=== PATIENT | male | born 1955 | race Caucasian/White ===

== ENCOUNTER 2018-10-31 02:58 | Inpatient (IN) | payer BC ==
[2018-10-31] MEDS ORDERED: NITROGLYCERIN/D5W 50 MG/250 ML RTUINJ IV PRN (03:15)
[2018-10-31] MEDS ORDERED: NITROGLYCERIN/D5W 50 MG/250 ML RTUINJ IV ONE (03:15)
--- NOTE | 2018-10-31 03:18 | ER Document Report ---
ED Respiratory Problem - General Chief Complaint: Shortness Of Breath Stated Complaint: SHORTNESS OF BREATH Time Seen by Provider: 10/31/18 03:07 Notes: Patient is a 63-year-old male that comes to the emergency department for chief complaint of difficulty breathing. He comes by EMS, he was found to be very hypertensive in the 200s over 100s, he was given 4 sublingual nitroglycerin and had to 1 inch Nitropaste was placed on his chest. Patient states he is not having chest pain but he did significantly get worsening shortness of breath and swelling on his legs over the past 3 days. He states he has had a cough with occasional greenish sputum production. He denies fever. He did have the influenza vaccine. He denies history of heart failure. He does have a history of hypertension, atrial fibrillation, on Eliquis. Denies history of MO, stent, bypass, CHF. Follows with [facility] providers. - Related Data Allergies/Adverse Reactions: Penicillins Allergy (Verified 10/31/18 03:47) Past Medical History - General Information source: Patient - Social History Smoking Status: Never Smoker Frequency of alcohol use: None Drug Abuse: None Lives with: Family Family History: Reviewed & Not Pertinent - Past Medical History Cardiac Medical History: Reports: Hx Atrial Fibrillation, Hx Hypertension - Immunizations Immunizations up to date: Yes Hx Diphtheria, Pertussis, Tetanus Vaccination: Yes Review of Systems - Review of Systems Constitutional: No symptoms reported EENT: No symptoms reported Cardiovascular: See HPI Respiratory: See HPI Gastrointestinal: No symptoms reported Genitourinary: No symptoms reported Male Genitourinary: No symptoms reported Musculoskeletal: No symptoms reported Skin: No symptoms reported Hematologic/Lymphatic: No symptoms reported Neurological/Psychological: No symptoms reported Physical Exam - Vital signs Vitals: Temp Pulse Resp BP Pulse Ox 97.9 F 77 24 H 205/126 H 94 10/31/18 02:58 10/31/18 02:58 10/31/18 02:58 10/31/18 02:58 10/31/18 02:58 - Notes Notes: GENERAL: Alert, interacts well. HEAD: Normocephalic, atraumatic. EYES: Pupils equal, round, and reactive to light. Extraocular movements intact. ENT: Oral mucosa moist, tongue midline. Oropharynx unremarkable. Airway patent. Nares patent, no nasal septal hematoma, TM's intact. NECK: Full range of motion. Supple. Trachea midline. LUNGS: Bilateral soft rales, scattered coarse breath sounds, mild tachypnea. No labored breathing or severe distress while on BiPAP. HEART: Regular rate and rhythm. No murmur ABDOMEN: Soft, non-tender. Non-distended. Bowel sounds present in all 4 quadrants. GENITOURINARY: Deferred EXTREMITIES: Moves all 4 extremities spontaneously. 3+ lower extremity edema bilaterally., normal radial and dorsalis pedis pulses bilaterally. No cyanosis. BACK: no cervical, thoracic, lumbar midline tenderness. No saddle anesthesia, normal distal neurovascular exam. NEUROLOGICAL: Alert and oriented x3. Normal speech. [cranial nerves II through XII grossly intact]. PSYCH: Normal affect, normal mood. SKIN: Warm, dry, normal turgor. Healing wound with current dressing over the left distal anterior leg without notable surrounding erythema or induration. Course - Re-evaluation Re-evalutation: On initial evaluation patient with bilateral rails, a few expiratory wheezes, mild tachypnea. He was immediately placed on BiPAP. Blood pressures greater than 200 systolic. Bilateral lower extremity swelling. Clinical picture is most consistent with flash pulmonary edema, patient has already received 4 sublingual nitroglycerin and 2 inches of nitroglycerin on the chest. Patient was started on nitroglycerin drip at 80 mcg/min. He states he feels better but still short of breath. 10/31/18 04:00 Patient reevaluated, appears comfortable on BiPAP, he states he feels very much improved after arrival. He does not have any tachypnea or complaints of shortness of breath. Blood pressure in the 160s. I did remove the Nitropaste from his chest. Workup still pending. Chest x-ray does not show overt failure, possible pneumonia. This is consistent with patient being on BiPAP and having received a lot of nitroglycerin before the chest x-ray is performed. Patient does have leukocytosis at 14, lactic acid is only 2.6, troponin is indeterminate. Starting on Levaquin. Because of clinical picture patient with hypertensive emergency, respiratory distress, and excellent response to nitroglycerin with symptom resolution, in addition to lowe r extremity edema, patient will remain on nitroglycerin drip, be given Lasix bolus IV, and remain on BiPAP. Will discuss with hospitalist for admission. I discussed the case with Dr. Hackett. 10/31/18 04:[address] Cummings, hospitalist, patient accepted to [facility] full admission. - Vital Signs Vital signs: Temp Pulse Resp BP Pulse Ox 97.3 F 79 16 177/82 H 97 10/31/18 06:40 10/31/18 07:07 10/31/18 06:40 10/31/18 07:07 10/31/18 06:42 - Laboratory Result Diagrams: 10/31/18 03:11 10/31/18 03:11 Laboratory results interpreted by me: 10/31/18 10/31/18 10/31/18 03:11 03:11 03:11 WBC 13.9 H Absolute Neutrophils 9.8 H Lactic Acid NT-Pro-B Natriuret Pep 2060 H Total Protein 6.0 L Albumin 3.2 L TSH 10/31/18 10/31/18 10/31/18 03:11 03:11 03:11 WBC Absolute Neutrophils Lactic Acid 2.6 H NT-Pro-B Natriuret Pep 2180 H Total Protein Albumin TSH 5.88 H Critical Care Note - Critical Care Note Total time excluding time spent on procedures (mins): 40 - Respiratory distress, acute CHF Comments: Please allow 40 minutes of critical care time for patient with respiratory distress, hypertensive emergency, acute CHF exacerbation, likely pneumonia. Interventions including BiPAP, antibiotics, nitroglycerin drip, multiple re- evaluations, consultation and admission to the hospital. Discharge - Discharge Clinical Impression: Respiratory distress, Productive cough, Hypertensive emergency CHF (congestive heart failure) Qualifiers: Heart failure type: unspecified Heart failure chronicity: acute Qualified Code(s): I50.9 - Heart failure, unspecified Condition: Fair Disposition: ADMITTED INPATIENT Admitting Provider: Hospitalist Unit Admitted: [facility]
[2018-10-31 03:27] LABS: ABSOLUTE BASOPHILS # (AUTO) 0.1 10^3/uL (0.0-0.2); ABSOLUTE EOSINOPHILS # (AUTO) 0.4 10^3/uL (0.0-0.6); ABSOLUTE LYMPHOCYTES (AUTO) 2.4 10^3/uL (0.5-4.7); ABSOLUTE MONOCYTES (AUTO) 1.2 10^3/uL (0.1-1.4); ABSOLUTE NEUT (AUTO) 9.8 10^3/uL (1.7-8.2); HEMATOCRIT 43.5 % (37.9-51.0); LYMPHOCYTES % (AUTO) 17.1 % (13-45); MEAN CORPUSCULAR HEMOGLOBIN 27.9 pg (27.0-33.4); MEAN CORPUSCULAR HGB CONC 34.5 g/dL (32.0-36.0); MEAN CORPUSCULAR VOLUME 81 fl (80-97); MONOCYTES % (AUTO) 8.4 % (3-13); PLATELET COUNT 257 10^3/uL (150-450); RED BLOOD COUNT 5.38 10^6/uL (4.35-5.55); SEGMENTED NEUTROPHILS % (AUTO) 70.5 % (42-78); TOTAL CELLS COUNTED % (AUTO) 100 %; WHITE BLOOD COUNT 13.9 10^3/uL (4.0-10.5)
[2018-10-31 03:30] LABS: VENOUS BLOOD BASE EXCESS 2.8 mmol/L; VENOUS BLOOD PCO2 55.7 mmHg (35-63); VENOUS BLOOD PH 7.35 (7.30-7.42)
[2018-10-31 03:50] LABS: ALANINE AMINOTRANSFERASE 43 U/L (21-72); ALBUMIN 3.2 g/dL (3.5-5.0); ALKALINE PHOSPHATASE 93 U/L (38-126); ANION GAP 6 (5-19); ASPARTATE AMINO TRANSFERASE 32 U/L (17-59); BILIRUBIN,DIRECT 0.1 mg/dL (0.0-0.4); BILIRUBIN,TOTAL 0.5 mg/dL (0.2-1.3); BLOOD UREA NITROGEN 19 mg/dL (7-20); CALCIUM 9.3 mg/dL (8.4-10.2); CARBON DIOXIDE 30 mmol/L (22-30); CHLORIDE 105 mmol/L (98-107); GLUCOSE 88 mg/dL (75-110); SODIUM 141.4 mmol/L (137-145)
--- NOTE | 2018-10-31 04:00 | RADIOLOGY REPORT (SQ) ---
CLINICAL HISTORY: shortness of breath COMPARISON: None. TECHNIQUE: XR CHEST 1 VIEW 10/31/2018 3:11 AM RN ADMISSIONS FINDINGS: The heart is mildly enlarged. There is bibasilar atelectasis. There is no pleural effusion. There is no pneumothorax. There are no acute osseous findings. IMPRESSION: No definite pneumonia.
[2018-10-31 04:07] LABS: TROPONIN I 0.026 ng/mL
[2018-10-31] MEDS ORDERED: FUROSEMIDE INJ/PF 40 MG/4 ML SDV IV ONE ×2 (04:12→04:50)
[2018-10-31] MEDS ORDERED: LEVOFLOXACIN 750 MG/D5W RTU 750 MG/150 ML RTUPB IV ONE (04:13)
[2018-10-31] MEDS ORDERED: ONDANSETRON HCL INJ/PF 4 MG/2 ML SDV IV PRN (05:39)
[2018-10-31] MEDS ORDERED: ONDANSETRON 4 MG TAB.RAPDIS PO PRN (05:39)
[2018-10-31] MEDS ORDERED: MAG HYDROX/AL HYDROX/SIMETH SUSP 30 ML UDCUP PO PRN (05:39)
[2018-10-31] MEDS ORDERED: MAGNESIUM HYDROXIDE SUSP 30 ML UDCUP PO PRN (05:39)
[2018-10-31] MEDS ORDERED: NICOTINE 21 MG/24 HR PATCH.TD24 TD PRN (05:50)
[2018-10-31] MEDS ORDERED: NITROGLYCERIN 0.4 MG/TAB 25 TAB/BOTTLE SL PRN (05:50)
[2018-10-31] MEDS ORDERED: ACETAMINOPHEN 650 MG SUPP.RECT PR PRN (05:50)
[2018-10-31] MEDS ORDERED: MORPHINE SULFATE 10 MG/ML INJ IV PRN ×3 (05:50)
[2018-10-31] MEDS ORDERED: ACETAMINOPHEN 325 MG TABLET PO PRN (05:50)
[2018-10-31 06:58] LABS: FREE T3 3.09 pg/mL (2.77-5.27); FREE T4 (FREE THYROXINE) 1.2 ng/dL (0.78-2.19)
[2018-10-31 07:11] LABS: THYROID STIMULATING HORMONE 5.88 uIU/mL (0.47-4.68)
--- NOTE | 2018-10-31 07:25 | PDOC H&P ---
History of Present Illness Admission Date/PCP: 10/31/18 05:12 UNIQUE LAROSE DO Patient complains of: Dyspnea History of Present Illness: MARILEE MONTANO is a 63 year old male who presented to the emergency room with a 3- day history of gradually worsening dyspnea. Over the course of 3 days he noted increased dyspnea with swelling of his legs and a cough which was occasionally productive of small amounts of green mucus. On the late evening of Berta he became severely dyspneic at home and summoned EMS to bring him to the hospital. He denied similar prior episodes and has not identified any aggravating or ameliorating factors for his dyspnea and swelling. In the emergency room he was found to have severe hypertension as well as acute pulmonary edema with 4+ peripheral edema and thus was treated with a nitroglycerin drip and supplemental oxygen via BiPAP which relieved his symptoms. He was also treated with diuretic therapy utilizing Lasix and was started on empiric antibiotic of Levaquin due to an elevated white blood count with his history of a cough productive of greenish mucus and mildly elevated serum lactate at 2.6. He additionally has a history of atrial fibrillation and is on chronic anticoagulation with Eliquis. Because of his new onset congestive heart failure he is admitted to the hospital for further evaluation and felipe tment. Past Medical History Cardiac Medical History: Reports: Atrial Fibrillation - On chronic anticoagulation with Eliquis, Hypertension, Other - Edema of the lower extremities Pulmonary Medical History: Denies: Asthma, Chronic Obstructive Pulmonary Disease (COPD) EENT Medical History: Reports: None Neurological Medical History: Denies: Hemorrhagic CVA, Ischemic CVA, Migraine, Seizures Endocrine Medical History: Reports: Obesity Denies: Diabetes Mellitus Type 1, Diabetes Mellitus Type 2, Hyperthyroidism, Hypothyroidism Renal/ Medical History: Denies: Chronic Kidney Disease, Nephrolithiasis Malignancy Medical History: Reports: None GI Medical History: Denies: Cirrhosis, Hepatitis Musculoskeltal Medical History: Denies: Arthritis, Gout Skin Medical History: Denies: Eczema, Psoriasis Psychiatric Medical History: Denies: Alcohol Dependency, Substance Abuse, Tobacco Dependency Traumatic Medical History: Reports: None Hematology: Reports: Bleeding Tendencies - On Eliquis Denies: Anemia Infectious Medical History: Reports: None Past Surgical History Past Surgical History: Reports: None Social History Information Source: Patient Lives with: Spouse/Significant other Smoking Status: Never Smoker Frequency of Alcohol Use: None Hx Recreational Drug Use: No Drugs: None Hx Prescription Drug Abuse: No - Advance Directive Resuscitation Status: Full Code Surrogate healthcare decision maker:: Family History Family History: Hypertension Parental Family History Reviewed: Yes Children Family History Reviewed: No Sibling(s) Family History Reviewed.: Yes Medication/Allergy Home Medications: Amlodipine Besylate [Norvasc 10 mg Tablet] 05/05/12 Aspirin [Ecotrin 81 mg EC Tablet] 05/05/12 Fenofibrate [Lofibra] 05/05/12 Ibuprofen [Motrin Ib] 05/05/12 Insulin Glargine,Hum.rec.anlog [Lantus Solostar] 100 unit SQ 05/05/12 Metformin HCl [Glumetza ER 500 mg Tablet] 05/05/12 Metoprolol Tartrate [Lopressor 50 mg Tablet] 50 mg PO Q12H 05/05/12 Allergies/Adverse Reactions: Penicillins Allergy (Verified 10/31/18 03:47) Review of Systems Constitutional: ABSENT: chills, fever(s) Eyes: ABSENT: visual disturbances, other - Ocular pain Ears: ABSENT: hearing changes, other - Ear pain Nose, Mouth, and Throat: ABSENT: mouth pain, sore throat Cardiovascular: PRESENT: dyspnea on exertion, edema, orthropnea. ABSENT: chest pain, palpitations Respiratory: PRESENT: cough, dyspnea, sputum - Greenish thick sputum Gastrointestinal: ABSENT: abdominal pain, constipation, diarrhea, nausea, vomiting Genitourinary: ABSENT: dysuria, hematuria Musculoskeletal: ABSENT: deformity, joint swelling Integumentary: ABSENT: pruritus, rash Neurological: ABSENT: confusion, convulsions, memory loss, tremor(s) Psychiatric: ABSENT: anxiety, depression Endocrine: ABSENT: cold intolerance, heat intolerance Hematologic/Lymphatic: PRESENT: easy bleeding, easy bruising Physical Exam Vital Signs: Temp Pulse Resp BP Pulse Ox 97.9 F 77 12 144/90 H 96 10/31/18 02:58 10/31/18 02:58 10/31/18 05:56 10/31/18 05:56 10/31/18 05:56 Intake & Output 10/29/18 10/30/18 10/31/18 23:59 23:59 23:59 Intake Total 17 Balance 17 Weight 146.9 kg General appearance: PRESENT: no acute distress, cooperative, other - On BiPAP Head exam: PRESENT: atraumatic, normocephalic Eye exam: PRESENT: conjunctiva pink. ABSENT: scleral icterus Ear exam: PRESENT: normal external ear exam. ABSENT: bleeding, drainage Mouth exam: PRESENT: dry mucosa, neck supple Respiratory exam: PRESENT: rales - Bibasilar, symmetrical. ABSENT: prolonged expiratory phas, rhonchi, wheezes Cardiovascular exam: PRESENT: gallop - S4 gallop noted, irregular rhythm - Irregularly irregular rate and rhythm. ABSENT: clicks, rubs Pulses: PRESENT: normal radial pulses, normal dorsalis pedis pul Vascular exam: PRESENT: normal capillary refill. ABSENT: pallor GI/Abdominal exam: PRESENT: normal bowel sounds, soft Rectal exam: PRESENT: deferred Extremities exam: PRESENT: other - 4+ pitting edema bilateral toes to knees. ABSENT: tenderness Musculoskeletal exam: ABSENT: deformity, dislocation Neurological exam: PRESENT: alert, oriented to person, oriented to place, oriented to time, oriented to situation, CN II-XII grossly intact. ABSENT: motor sensory deficit Psychiatric exam: PRESENT: appropriate affect, normal mood Skin exam: PRESENT: dry, intact, warm. ABSENT: jaundice, rash, urticaria Results Laboratory Results: 10/31/18 03:11 10/31/18 03:11 10/31/18 10/31/18 10/31/18 03:11 03:11 03:11 WBC 13.9 H RBC 5.38 Hgb 15.0 Hct 43.5 MCV 81 MCH 27.9 MCHC 34.5 RDW 14.0 Plt Count 257 Seg Neutrophils % 70.5 Lymphocytes % 17.1 Monocytes % 8.4 Eosinophils % 3.0 Basophils % 1.0 Absolute Neutrophils 9.8 H Absolute Lymphocytes 2.4 Absolute Monocytes 1.2 Absolute Eosinophils 0.4 Absolute Basophils 0.1 VBG pH VBG pCO2 VBG HCO3 VBG Base Excess Sodium 141.4 Potassium 4.0 Chloride 105 Carbon Dioxide 30 Anion Gap 6 BUN 19 Creatinine 1.03 Est GFR ( Amer) > 60 Est GFR (Non-Af Amer) > 60 Glucose 88 Lactic Acid 2.6 H Calcium 9.3 Total Bilirubin 0.5 AST 32 ALT 43 Alkaline Phosphatase 93 Total Protein 6.0 L Albumin 3.2 L 10/31/18 03:11 WBC RBC Hgb Hct MCV MCH MCHC RDW Plt Count Seg Neutrophils % Lymphocytes % Monocytes % Eosinophils % Basophils % Absolute Neutrophils Absolute Lymphocytes Absolute Monocytes Absolute Eosinophils Absolute Basophils VBG pH 7.35 VBG pCO2 55.7 VBG HCO3 30.0 VBG Base Excess 2.8 Sodium Potassium Chloride Carbon Dioxide Anion Gap BUN Creatinine Est GFR ( Amer) Est GFR (Non-Af Amer) Glucose Lactic Acid Calcium Total Bilirubin AST ALT Alkaline Phosphatase Total Protein Albumin 10/31/18 03:11 Troponin I 0.026 NT-Pro-B Natriuret Pep 2060 H Impressions: Chest X-Ray 10/31/18 03:11 IMPRESSION: No definite pneumonia. Assessment & Plan - Diagnosis (1) Acute congestive heart failure Qualifiers: Heart failure type: unspecified Qualified Code(s): I50.9 - Heart failure, unspecified Is this a current diagnosis for this admission?: Yes Plan: I suspect that this is actually acute on chronic diastolic congestive heart failure however this will need to be proven by echocardiography. Patient was initially treated with BiPAP plus diuretics plus a nitroglycerin drip. He had a good response to initial therapy and will be started on usual therapeutic agents for heart failure including a beta-nikia Toprol-XL, and SOTERO inhibitor lisinopril, spironolactone, and a statin. An echocardiogram will be obtained. Serial EKGs and cardiac enzyme determinations will be made to rule out acute cardiac ischemia or injury. Patient will be continued on Nitropaste for the interim until he has been adequately started on his other therapeutic agents. (2) Hypertensive emergency Is this a current diagnosis for this admission?: Yes Plan: Patient was initially treated with nitroglycerin drip this was substituted for nitroglycerin paste changed to every 6 hours. Should he develop chest pain or acute dyspnea he will be treated with intravenous morphine sulfate 2-4 mg IV every 2 hours as needed pain per pain scale. Serial EKGs and cardiac enzymes will be obtained to evaluate potential myocardial ischemia or injury. Vital signs will be observed closely on the IMCU and the patient will be on cardiac telemetry. (3) Productive cough Is this a current diagnosis for this admission?: Yes Plan: Patient was started empirically on Levaquin in the emergency room. This will be continued for a total of 3000 mg to complete the usual short course therapy. Daily CBCs will be obtained to help evaluate therapy. Serum lactate will be rechecked 4 hours after the initial evaluation. (4) Chronic anticoagulation Is this a current diagnosis for this admission?: Yes Plan: Patient will be continued on his usual dose of Eliquis once medication confir mation has been performed and correct dosing can be determined. (5) Chronic atrial fibrillation Is this a current diagnosis for this admission?: Yes Plan: Patient will be continued on his current regimen of anticoagulation therapy. He will be treated for congestive heart failure and medications for congestive heart failure may be used to control his atrial fibrillation rate if needed. (6) Morbid obesity with BMI of 45.0-49.9, adult Is this a current diagnosis for this admission?: Yes Plan: Dietary consultation should be obtained to assist the patient in a appropriate weight loss diet and lifestyle modifications to allow him to maintain weight loss and improved health. - Time Time Spent: 30 to 50 Minutes Critical Time spent with patient: Less than 15 minutes Medications reviewed and adjusted accordingly: Yes Anticipated discharge: Home - Inpatient Certification Based on my medical assessment, after consideration of the patient's comorbidities, presenting symptoms, or acuity I expect that the services needed warrant INPATIENT care.: Yes I certify that my determination is in accordance with my understanding of Medicare's requirements for reasonable and necessary INPATIENT services [42 CFR 412.3e].: Yes Medical Necessity: Need Close Monitoring Due to Risk of Patient Decompensation, Need For Continuous Telemetry Monitoring, Risk of Complication if Not Cared For in Hospital
[2018-10-31] MEDS ORDERED: DEXTROSE 50%-WATER 25 GM/50 ML DISP.SYRIN IV PRN ×2 (07:42)
[2018-10-31] MEDS ORDERED: DEXTROSE 40% GEL 15 GM TUBE PO PRN ×2 (07:42)
[2018-10-31] MEDS ORDERED: GLUCAGON,HUMAN RECOMB 1 MG INJ IM PRN (07:42)
[2018-10-31] MEDS ORDERED: METFORMIN HCL 500 MG PO SCH (08:00)
[2018-10-31] MEDS ORDERED: FONDAPARINUX SODIUM INJ 2.5 MG/0.5 ML DISP.SYRIN SUBCUT SCH (08:00)
[2018-10-31 08:20] LABS: APPEARANCE,URINE CLEAR; BILIRUBIN,URINE NEGATIVE (NEGATIVE); COLOR,URINE YELLOW; GLUCOSE, URINE NEGATIVE (NEGATIVE); KETONES,URINE NEGATIVE (NEGATIVE); LEUKOCYTE ESTERASE,URINE NEGATIVE (NEGATIVE); NITRITE,URINE NEGATIVE (NEGATIVE); PROTEIN,URINE >=500 mg/dL (NEGATIVE); UROBILINOGEN,URINE NEGATIVE mg/dL (<2.0)
[2018-10-31 08:26] LABS: A TYPE INFLUENZA AG NEGATIVE (NEGATIVE); B INFLUENZA AG NEGATIVE (NEGATIVE)
[2018-10-31] MEDS: NITROGLYCERIN 2% OINTMENT 1 GM PACKET TP SCH ×4 (08:34→23:53)
[2018-10-31] MEDS: ASPIRIN 81 MG TABLET, ENT COATED PO SCH (09:23)
[2018-10-31] MEDS: APIXABAN 5 MG TABLET PO SCH ×2 (09:23→17:31)
[2018-10-31] MEDS: TORSEMIDE 20 MG TABLET PO SCH (09:23)
[2018-10-31] MEDS: SPIRONOLACTONE 25 MG TABLET PO SCH (09:24)
[2018-10-31] MEDS: DOCUSATE SODIUM 100 MG CAPSULE PO SCH ×2 (09:24→17:31)
[2018-10-31] MEDS: LISINOPRIL 10 MG TABLET PO SCH (09:24)
[2018-10-31] MEDS: METFORMIN HCL 500 MG TABLET PO SCH ×2 (09:24→17:31)
[2018-10-31] MEDS: INSULIN GLARGINE,HUM.REC.ANLOG 300 UNIT/3 ML INSULN.PEN SUBCUT SCH (09:25)
[2018-10-31] MEDS: FAMOTIDINE INJ/PF 20 MG/2 ML SDV IV SCH ×2 (09:25→21:28)
[2018-10-31] MEDS ORDERED: METOPROLOL SUCCINATE 50 MG TAB.SR.24H PO SCH ×2 (10:00)
[2018-10-31 10:29] LABS: CREATINE KINASE MB 2.83 ng/mL (<4.55); TROPONIN I 0.03 ng/mL
[2018-10-31] MEDS: INSULIN LISPRO 100 UNIT/ML 3 ML VIAL SUBCUT PRN ×2 (11:47→16:20)
--- NOTE | 2018-10-31 14:20 | EKG REPORT ---
SEVERITY:- ABNORMAL ECG - ATRIAL FIBRILLATION LOW VOLTAGE IN FRONTAL LEADS BORDERLINE R WAVE PROGRESSION, ANTERIOR LEADS BORDERLINE PROLONGED QT INTERVAL : Confirmed by: Xena Mckeon MD 31-Oct-2018 14:19:19
--- NOTE | 2018-10-31 16:34 | Progress Note ---
Provider Note Provider Note: I went to see Mr. Gilamn in follow-up. He was sitting on the edge of the bed and he was not having any difficulty breathing. I went over his history of present illness in detail. After examining him, looking at his labs and radiology, and reviewing his history, I decided to stop his Levaquin. I made some modifica tions to his blood pressure regimen. I discontinued his metoprolol he was started on in favor of the Coreg that he was on at home, and I doubled his Coreg dose to 12.5 mg once a day. I added hydralazine 3 times a day and gave orders for as needed IV hydralazine. He is continuing the nitro paste and the lisinopril and Aldactone. He is on torsemide once a day; if he does not get the diuretic response we want we may need to switch him to IV Lasix. He has a history of atrial fibrillation but no prior history of heart failure. Echocardiogram is pending. My focus today was on trying to get his blood pressure under control.
[2018-10-31 17:16] LABS: CREATINE KINASE MB 2.75 ng/mL (<4.55); TROPONIN I 0.029 ng/mL
[2018-10-31] MEDS: HYDRALAZINE HCL INJ/PF 20 MG/1 ML SDV IV PRN ×2 (17:31→22:41)
[2018-10-31] MEDS: ATORVASTATIN CALCIUM 80 MG TABLET PO SCH (21:29)
[2018-10-31] MEDS: HYDRALAZINE HCL 25 MG TABLET PO SCH (21:29)
[2018-10-31] MEDS: CARVEDILOL 12.5 MG TABLET PO SCH (21:29)
[2018-10-31 21:55] LABS: CREATINE KINASE MB 2.57 ng/mL (<4.55); TROPONIN I 0.028 ng/mL
[2018-10-31] MEDS ORDERED: ATORVASTATIN CALCIUM 10 MG TABLET PO SCH (22:00)
[2018-11-01] MEDS: LEVOTHYROXINE SODIUM 0.1 MG TABLET PO SCH (05:42)
[2018-11-01] MEDS: HYDRALAZINE HCL 25 MG TABLET PO SCH ×3 (05:42→21:19)
[2018-11-01] MEDS: NITROGLYCERIN 2% OINTMENT 1 GM PACKET TP SCH ×2 (05:42→11:24)
[2018-11-01 06:50] LABS: ABSOLUTE BASOPHILS # (AUTO) 0.1 10^3/uL (0.0-0.2); ABSOLUTE EOSINOPHILS # (AUTO) 0.3 10^3/uL (0.0-0.6); ABSOLUTE LYMPHOCYTES (AUTO) 2.1 10^3/uL (0.5-4.7); ABSOLUTE NEUT (AUTO) 8.2 10^3/uL (1.7-8.2); BASOPHILS % (AUTO) 1.2 % (0-2); EOSINOPHILS % (AUTO) 2.6 % (0-6); HEMATOCRIT 43.8 % (37.9-51.0); HEMOGLOBIN 15.2 g/dL (13.5-17.0); LYMPHOCYTES % (AUTO) 17.5 % (13-45); MEAN CORPUSCULAR HEMOGLOBIN 27.4 pg (27.0-33.4); MEAN CORPUSCULAR HGB CONC 34.7 g/dL (32.0-36.0); MEAN CORPUSCULAR VOLUME 79 fl (80-97); MONOCYTES % (AUTO) 8.6 % (3-13); PLATELET COUNT 241 10^3/uL (150-450); RED BLOOD COUNT 5.55 10^6/uL (4.35-5.55); RED CELL DISTRIBUTION WIDTH 14.3 % (11.5-14.0); SEGMENTED NEUTROPHILS % (AUTO) 70.1 % (42-78); TOTAL CELLS COUNTED % (AUTO) 100 %; WHITE BLOOD COUNT 11.7 10^3/uL (4.0-10.5)
[2018-11-01 07:08] LABS: ANION GAP 7 (5-19); BLOOD UREA NITROGEN 22 mg/dL (7-20); CALCIUM 9.3 mg/dL (8.4-10.2); CARBON DIOXIDE 29 mmol/L (22-30); CHLORIDE 101 mmol/L (98-107); CHOLESTEROL 187.83 mg/dL (0-200); GLUCOSE 92 mg/dL (75-110); POTASSIUM 3.8 mmol/L (3.6-5.0); SODIUM 136.8 mmol/L (137-145); TRIGLYCERIDES 271 mg/dL (<150)
[2018-11-01 07:19] LABS: DIRECT LDL 84 mg/dL (<100)
[2018-11-01 07:20] LABS: VLDL CHOLESTEROL 54.2 mg/dL (10-31)
[2018-11-01] MEDS: HYDRALAZINE HCL INJ/PF 20 MG/1 ML SDV IV PRN (08:48)
[2018-11-01] MEDS: METFORMIN HCL 500 MG TABLET PO SCH ×2 (08:48→17:14)
[2018-11-01] MEDS ORDERED: LEVOFLOXACIN 750 MG TABLET PO SCH (10:00)
[2018-11-01] MEDS: CHLORTHALIDONE 25 MG TABLET PO SCH (11:19)
[2018-11-01] MEDS: FAMOTIDINE INJ/PF 20 MG/2 ML SDV IV SCH ×2 (11:19→21:18)
[2018-11-01] MEDS: TORSEMIDE 20 MG TABLET PO SCH (11:20)
[2018-11-01] MEDS: APIXABAN 5 MG TABLET PO SCH ×2 (11:20→17:14)
[2018-11-01] MEDS: LISINOPRIL 10 MG TABLET PO SCH (11:20)
[2018-11-01] MEDS: CARVEDILOL 12.5 MG TABLET PO SCH ×2 (11:20→21:18)
[2018-11-01] MEDS: ASPIRIN 81 MG TABLET, ENT COATED PO SCH (11:21)
[2018-11-01] MEDS: DOCUSATE SODIUM 100 MG CAPSULE PO SCH ×2 (11:21→17:14)
[2018-11-01] MEDS: SPIRONOLACTONE 25 MG TABLET PO SCH (11:21)
[2018-11-01] MEDS: INSULIN GLARGINE,HUM.REC.ANLOG 300 UNIT/3 ML INSULN.PEN SUBCUT SCH (11:34)
--- NOTE | 2018-11-01 12:21 | PDOC PROGRESS REPORT ---
Subjective Progress Note for:: 11/01/17 Subjective:: 11/01/2017 63-year-old male came to the emergency room with complaints of shortness of breath. He has bilateral lower leg swelling. According to him he goes to the [facility] and given the history of congestive heart failure. Today he is comfortable in the bed communicating very well. Urinary output is 2.2 L yesterday. No acute events in the last 24 hours. Reason For Visit: ACUTE CONGESTIVE HEART FAILURE Physical Exam Vital Signs: Temp Pulse Resp BP Pulse Ox 98.0 F 70 17 168/88 H 95 11/01/18 07:53 11/01/18 07:53 11/01/18 07:53 11/01/18 07:53 11/01/18 07:53 Intake & Output 10/31/18 11/01/18 11/02/18 06:59 06:59 06:59 Intake Total 43 727 Output Total 480 2250 Balance -437 -1523 Weight 146.9 kg General appearance: PRESENT: mild distress, other - Morbidly obese male. Mouth exam: PRESENT: dry mucosa Neck exam: ABSENT: carotid bruit, JVD, lymphadenopathy, thyromegaly Respiratory exam: PRESENT: decreased breath sounds Cardiovascular exam: PRESENT: tachycardia GI/Abdominal exam: PRESENT: soft - Obese abdomen., other. ABSENT: tenderness Extremities exam: PRESENT: +2 edema Neurological exam: PRESENT: alert, awake, oriented to person, oriented to place, oriented to time, oriented to situation, CN II-XII grossly intact. ABSENT: motor sensory deficit Psychiatric exam: PRESENT: appropriate affect, normal mood. ABSENT: homicidal ideation, suicidal ideation Results Laboratory Results: 11/01/18 06:17 11/01/18 06:17 11/01/18 11/01/18 06:17 06:17 WBC 11.7 H RBC 5.55 Hgb 15.2 Hct 43.8 MCV 79 L MCH 27.4 MCHC 34.7 RDW 14.3 H Plt Count 241 Seg Neutrophils % 70.1 Lymphocytes % 17.5 Monocytes % 8.6 Eosinophils % 2.6 Basophils % 1.2 Absolute Neutrophils 8.2 Absolute Lymphocytes 2.1 Absolute Monocytes 1.0 Absolute Eosinophils 0.3 Absolute Basophils 0.1 Sodium 136.8 L Potassium 3.8 Chloride 101 Carbon Dioxide 29 Anion Gap 7 BUN 22 H Creatinine 1.22 Est GFR ( Amer) > 60 Est GFR (Non-Af Amer) > 60 Glucose 92 Calcium 9.3 Magnesium 1.6 Triglycerides 271 H Cholesterol 187.83 LDL Cholesterol Direct 84 VLDL Cholesterol 54.2 H HDL Cholesterol 35 L 10/31/18 10/31/18 10/31/18 03:11 03:11 09:44 Creatine Kinase 199 H CK-MB (CK-2) Troponin I 0.026 NT-Pro-B Natriuret Pep 2060 H 2180 H 10/31/18 10/31/18 10/31/18 09:44 15:45 15:45 Creatine Kinase 170 CK-MB (CK-2) 2.83 2.75 Troponin I 0.030 0.029 NT-Pro-B Natriuret Pep 10/31/18 10/31/18 21:19 21:19 Creatine Kinase 167 CK-MB (CK-2) 2.57 Troponin I 0.028 NT-Pro-B Natriuret Pep Impressions: Chest X-Ray 10/31/18 03:11 IMPRESSION: No definite pneumonia. Assessment & Plan - Diagnosis (1) Acute congestive heart failure Qualifiers: Heart failure type: unspecified Qualified Code(s): I50.9 - Heart failure, unspecified Is this a current diagnosis for this admission?: Yes Plan: 11/21/2017-patient is comfortably in the bed lying flat. No complaints today. Guarding to him his usual weight is 285 pounds. On admission weight is 321 pounds. Is on torsemide 40 mg IV daily. Echocardiogram is pending. And is to continue the diuresis. Patient denies any complaints of chest pain. I am going to discontinue nitro patch. Patient's troponins are normal. Requested for BNP for tomorrow. His BNP today is 2180. Fluid restriction was advised. Daily weight was requested. We are going to do the strict input output chart. (2) Chronic atrial fibrillation Is this a current diagnosis for this admission?: Yes Plan: 11/01/2017 patient has history of chronic atrial fibrillation. On Eliquis. Plan is to resume the Eliquis. (3) Morbid obesity with BMI of 45.0-49.9, adult Is this a current diagnosis for this admission?: Yes Plan: 11/01/2017-patient BMI is more than 45 diet exercise weight loss was advised. Lifestyle modifications are advised. Dietary consult was requested. - Time Time Spent with patient: 15-24 minutes Medications reviewed and adjusted accordingly: Yes Anticipated discharge: Home
[2018-11-01] MEDS: INSULIN LISPRO 100 UNIT/ML 3 ML VIAL SUBCUT PRN ×2 (12:26→17:15)
[2018-11-01] MEDS ORDERED: (PENDING PHARMACY ID) (Dulaglutide [Trulicity] 1.5 MG) SUBCUT SCH (14:15)
[2018-11-01] MEDS ORDERED: INSULIN DEGLUDEC SUBCUT SCH (14:15)
[2018-11-01] MEDS ORDERED: INSULIN ASPART 25 UNIT SQ SCH (17:00)
[2018-11-01] MEDS: INSULIN LISPRO 100 UNIT/ML 3 ML VIAL SUBCUT SCH (17:14)
--- NOTE | 2018-11-01 17:21 | EKG REPORT ---
SEVERITY:- ABNORMAL ECG - ATRIAL FIBRILLATION, V-RATE 60-79 BORDERLINE R WAVE PROGRESSION, ANTERIOR LEADS NONSPECIFIC T ABNORMALITIES, LATERAL LEADS : Confirmed by: Xena Mckeon MD 01-Nov-2018 17:20:36
[2018-11-01] MEDS ORDERED: INSULIN DEGLUDEC SQ SCH (18:00)
[2018-11-01] MEDS ORDERED: APIXABAN 5 MG TABLET PO SCH (18:00)
--- NOTE | 2018-11-01 21:02 | XCELERA REPORT ---
[address] [address] Transthoracic Echocardiogram Report Name: MARILEE MONTANO Age: 63 yrs Gender: Male : 1955 Patient Status: Inpatient Patient Location: [address] [place] [address] Study Date: 11/01/2018 09:32 AM Height: 70 in Weight: 323 lb BSA: 2.6 m2 Procedure: A two-dimensional transthoracic echocardiogram with color flow and Doppler was performed. The study was technically difficult with many images being suboptimal in quality. Reason For Study: CHF History: CHF. Ordering Physician: COLIN SAM Performed By: Moncho Gonzalez Interpretation Summary CHF The left ventricle is grossly normal size. There is normal left ventricular wall thickness. LV EF is 60% Left ventricular systolic function is normal. The left ventricular wall motion is normal. There is no thrombus. The right atrium is normal. The left atrium is moderately dilated. There is no evidence of mitral valve prolapse. There is no vegetation seen on the mitral valve. There is no mitral valve stenosis. There is a trace amount of mitral regurgitation There is no aortic valvular vegetation. There is no aortic valve stenosis There is no LVOT obstruction. There is aortic sclerosis without aortic stenosis. No aortic regurgitation is present. There is no tricuspid stenosis. There is a trace amount of tricuspid regurgitation There is mild pulmonary hypertension by echo RVSP is 37 to 42 mm of Hg , with RA mean of 5 to 10. There is no pulmonic valvular stenosis. There is no pulmonic valvular regurgitation. The aortic root is not well visualized. There is no pericardial effusion. MMode/2D Measurements & Calculations RVDd: 4.2 cm LVIDd: 6.3 cm FS: 30.1 % Ao root diam: 4.0 cm IVSd: 1.1 cm LVIDs: 4.4 cm EDV(Teich): 203.3 ml Ao root area: 12.3 cm2 LVPWd: 1.1 cm ESV(Teich): 88.9 ml LA dimension: 5.3 cm EF(Teich): 56.3 % Doppler Measurements & Calculations MV E max екатерина: MV P1/2t max екатерина: Ao V2 max: LV V1 max P.1 cm/sec 123.2 cm/sec 157.5 cm/sec 3.3 mmHg MV P1/2t: 77.3 msec Ao max P.9 mmHgLV V1 max: MVA(P1/2t): 2.8 cm2 91.4 cm/sec MV dec slope: 467.3 cm/sec2 MV dec time: 0.21 sec PA V2 max: TR max екатерина: MV P1/2t-pr_phl: 93.8 cm/sec 279.6 cm/sec 77.3 msec PA max P.5 mmHg TR max P.3 mmHg Left Ventricle The left ventricle is grossly normal size. There is normal left ventricular wall thickness. LV EF is 60%. Left ventricular systolic function is normal. LV diastolic function could not be adequately assessed due to atrial fibrilation. The left ventricular wall motion is normal. There is no thrombus. Right Ventricle The right ventricular apex is not well visualized. Atria The right atrium is normal. The left atrium is moderately dilated. Mitral Valve There is no evidence of mitral valve prolapse. There is no vegetation seen on the mitral valve. There is no mitral valve stenosis. There is a trace amount of mitral regurgitation. Aortic Valve There is no aortic valvular vegetation. There is no aortic valve stenosis. There is no LVOT obstruction. There is aortic sclerosis without aortic stenosis. No aortic regurgitation is present. Tricuspid Valve There is no tricuspid stenosis. There is a trace amount of tricuspid regurgitation. There is mild pulmonary hypertension by echo. RVSP is 37 to 42 mm of Hg , with RA mean of 5 to 10. Pulmonic Valve There is no pulmonic valvular stenosis. There is no pulmonic valvular regurgitation. Great Vessels The aortic root is not well visualized. Effusions There is no pericardial effusion. : COLIN SAM > Xena Mckeon
[2018-11-01] MEDS: SOTALOL HCL 80 MG TABLET PO SCH (21:18)
[2018-11-01] MEDS: ATORVASTATIN CALCIUM 80 MG TABLET PO SCH (21:18)
[2018-11-02] MEDS: HYDRALAZINE HCL 25 MG TABLET PO SCH ×3 (05:36→22:48)
[2018-11-02] MEDS: LEVOTHYROXINE SODIUM 0.1 MG TABLET PO SCH (05:36)
[2018-11-02 05:55] LABS: ABSOLUTE BASOPHILS # (AUTO) 0.1 10^3/uL (0.0-0.2); ABSOLUTE EOSINOPHILS # (AUTO) 0.3 10^3/uL (0.0-0.6); ABSOLUTE LYMPHOCYTES (AUTO) 2.1 10^3/uL (0.5-4.7); ABSOLUTE NEUT (AUTO) 6.3 10^3/uL (1.7-8.2); BASOPHILS % (AUTO) 0.9 % (0-2); EOSINOPHILS % (AUTO) 2.7 % (0-6); HEMATOCRIT 41.6 % (37.9-51.0); HEMOGLOBIN 14.6 g/dL (13.5-17.0); LYMPHOCYTES % (AUTO) 21.6 % (13-45); MEAN CORPUSCULAR HEMOGLOBIN 28.1 pg (27.0-33.4); MEAN CORPUSCULAR VOLUME 80 fl (80-97); MONOCYTES % (AUTO) 10.1 % (3-13); PLATELET COUNT 207 10^3/uL (150-450); RED BLOOD COUNT 5.19 10^6/uL (4.35-5.55); RED CELL DISTRIBUTION WIDTH 14.2 % (11.5-14.0); SEGMENTED NEUTROPHILS % (AUTO) 64.7 % (42-78); TOTAL CELLS COUNTED % (AUTO) 100 %; WHITE BLOOD COUNT 9.8 10^3/uL (4.0-10.5)
[2018-11-02 06:20] LABS: ANION GAP 5 (5-19); BLOOD UREA NITROGEN 28 mg/dL (7-20); CARBON DIOXIDE 33 mmol/L (22-30); CHLORIDE 100 mmol/L (98-107); GLUCOSE 98 mg/dL (75-110); POTASSIUM 3.4 mmol/L (3.6-5.0); SODIUM 138.3 mmol/L (137-145)
[2018-11-02] MEDS: INSULIN LISPRO 100 UNIT/ML 3 ML VIAL SUBCUT SCH ×3 (07:53→17:50)
[2018-11-02] MEDS: METFORMIN HCL 500 MG TABLET PO SCH ×2 (07:53→17:50)
[2018-11-02] MEDS ORDERED: (PENDING PHARMACY ID) (Insulin Aspart [Novolog Flexpen] 10 UNITS) SQ SCH (08:00)
[2018-11-02] MEDS ORDERED: FUROSEMIDE INJ/PF 40 MG/4 ML SDV IV SCH (10:00)
[2018-11-02] MEDS: INSULIN GLARGINE,HUM.REC.ANLOG 300 UNIT/3 ML INSULN.PEN SUBCUT SCH (10:16)
[2018-11-02] MEDS: ASPIRIN 81 MG TABLET, ENT COATED PO SCH ×2 (10:17→10:22)
[2018-11-02] MEDS: DOCUSATE SODIUM 100 MG CAPSULE PO SCH ×2 (10:19→18:00)
[2018-11-02] MEDS: SOTALOL HCL 80 MG TABLET PO SCH ×2 (10:19→21:02)
[2018-11-02] MEDS: SPIRONOLACTONE 25 MG TABLET PO SCH (10:19)
[2018-11-02] MEDS: CARVEDILOL 12.5 MG TABLET PO SCH ×2 (10:19→21:03)
[2018-11-02] MEDS: LISINOPRIL 10 MG TABLET PO SCH (10:20)
[2018-11-02] MEDS: GLIMEPIRIDE 4 MG TABLET PO SCH (10:21)
[2018-11-02] MEDS: APIXABAN 5 MG TABLET PO SCH ×2 (10:21→17:50)
[2018-11-02] MEDS: CHLORTHALIDONE 25 MG TABLET PO SCH (10:22)
[2018-11-02] MEDS: TORSEMIDE 20 MG TABLET PO SCH (10:22)
[2018-11-02] MEDS: FAMOTIDINE INJ/PF 20 MG/2 ML SDV IV SCH ×2 (10:23→21:02)
--- NOTE | 2018-11-02 11:49 | Physician Advisory Note ---
Physician Advisor ProgressNote .: Pursuant to the plan for [facility], I have reviewed the medical record for this patient. Physician Advisor Statement: Please consider documenting, if you agree: 1. "Acute CHF with preserved EF & mild pulmonary HTN" 2. "Hypertensive emergency causing acute CHF" 3. "Acute Hypoxemic Respiratory Failure due to above with accesssory muscle use and O2 sat just 94% on 2L O2 in ED, requiring Bipap initially" - [ 94% O2 sat on 2L = P/F ratio of 261, dx-ic of Ac Resp Failure if no chronic hypoxemia issue ] Thanks! CK To threat analyst: it looks like pt may have developed DILLON, but we don't know his baseline Cr. He may just be rising to a baseline level of CKD stage __. Will have to wait & see what attending thinks as the picture unfolds.
--- NOTE | 2018-11-02 16:32 | PDOC PROGRESS REPORT ---
Subjective Progress Note for:: 11/02/18 Subjective:: This is 63 years old male patient presented with past medical history of morbid obesity, atrial fibrillation and chronic anticoagulation with Eliquis, and hypertension presented with chief complaint of 3 days history of shortness of breath which is gradually worsening. At presentation to ER his blood pressure was in the hypertensive emergency range for which she was started on nitroglycerin drip. Patient is found to be in acute diastolic congestive heart failure evidenced by bilateral pitting edema shortness of breath and echocardiogram revealed ejection fraction of 60% so patient has heart failure with preserved left ventricular function. Currently his shortness of breath is subsiding is bilateral edema is relatively better. His blood work shows his creatinine is jumping from 1.03to1.49 which might be related to aggressive diuresis. Will taper his Lasix to 40 mg IV once a day. Reason For Visit: ACUTE CONGESTIVE HEART FAILURE Physical Exam Vital Signs: Temp Pulse Resp BP Pulse Ox 97.8 F 64 18 139/94 H 98 11/02/18 12:02 11/02/18 14:00 11/02/18 12:02 11/02/18 12:02 11/02/18 12:02 Intake & Output 11/01/18 11/02/18 11/03/18 06:59 06:59 06:59 Intake Total 727 474 237 Output Total 2250 1400 1350 Balance -1523 -926 -1113 Weight 138.4 kg General appearance: PRESENT: no acute distress Eye exam: PRESENT: conjunctiva pink Mouth exam: PRESENT: moist, neck supple Neck exam: PRESENT: carotid bruit Respiratory exam: PRESENT: crackles Cardiovascular exam: PRESENT: RRR. ABSENT: diastolic murmur, rubs, systolic murmur GI/Abdominal exam: PRESENT: normal bowel sounds, soft. ABSENT: distended, guarding, mass, organolmegaly, rebound, tenderness Extremities exam: PRESENT: other - +3 bilateral pitting edema Neurological exam: PRESENT: alert, awake, oriented to time, oriented to sit uation Results Laboratory Results: 11/02/18 05:15 11/02/18 05:15 11/02/18 11/02/18 05:15 05:15 WBC 9.8 RBC 5.19 Hgb 14.6 Hct 41.6 MCV 80 MCH 28.1 MCHC 35.0 RDW 14.2 H Plt Count 207 Seg Neutrophils % 64.7 Lymphocytes % 21.6 Monocytes % 10.1 Eosinophils % 2.7 Basophils % 0.9 Absolute Neutrophils 6.3 Absolute Lymphocytes 2.1 Absolute Monocytes 1.0 Absolute Eosinophils 0.3 Absolute Basophils 0.1 Sodium 138.3 Potassium 3.4 L Chloride 100 Carbon Dioxide 33 H Anion Gap 5 BUN 28 H Creatinine 1.49 H Est GFR ( Amer) 58 L Est GFR (Non-Af Amer) 48 L Glucose 98 Calcium 9.0 Magnesium 1.7 10/31/18 10/31/18 10/31/18 03:11 03:11 09:44 Creatine Kinase 199 H CK-MB (CK-2) Troponin I 0.026 NT-Pro-B Natriuret Pep 2060 H 2180 H 10/31/18 10/31/18 10/31/18 09:44 15:45 15:45 Creatine Kinase 170 CK-MB (CK-2) 2.83 2.75 Troponin I 0.030 0.029 NT-Pro-B Natriuret Pep 10/31/18 10/31/18 11/02/18 21:19 21:19 05:15 Creatine Kinase 167 CK-MB (CK-2) 2.57 Troponin I 0.028 NT-Pro-B Natriuret Pep 1020 H Impressions: Chest X-Ray 10/31/18 03:11 IMPRESSION: No definite pneumonia. Assessment & Plan - Diagnosis (1) Acute kidney injury Is this a current diagnosis for this admission?: Yes Plan: Possibly due to overdiuresis. I will cut down his Lasix to 40 mg IV daily. (2) Acute diastolic (congestive) heart failure Is this a current diagnosis for this admission?: Yes Plan: Continue Lasix. (3) Hypertensive emergency Is this a current diagnosis for this admission?: Yes Plan: Which precipitated the acute congestive heart failure. Patient has been on Coreg, hydralazine and lisinopril. Today his blood pressure is 139/94. I increased the dose of his hydralazine to 50 mg 3 times daily. (4) Chronic atrial fibrillation Is this a current diagnosis for this admission?: Yes Plan: Rate controlled. I will continue his Eliquis. (5) Morbid obesity with BMI of 45.0-49.9, adult Is this a current diagnosis for this admission?: Yes Plan: Patient advised to do lifestyle modification in the form of healthy diet, regular exercise and weight loss.
[2018-11-02] MEDS: INSULIN LISPRO 100 UNIT/ML 3 ML VIAL SUBCUT PRN (17:51)
[2018-11-02] MEDS: ATORVASTATIN CALCIUM 80 MG TABLET PO SCH (21:02)
[2018-11-03] MEDS: HYDRALAZINE HCL 25 MG TABLET PO SCH ×3 (05:34→21:28)
[2018-11-03] MEDS: LEVOTHYROXINE SODIUM 0.1 MG TABLET PO SCH (05:34)
[2018-11-03 06:11] LABS: ABSOLUTE BASOPHILS # (AUTO) 0.1 10^3/uL (0.0-0.2); ABSOLUTE EOSINOPHILS # (AUTO) 0.3 10^3/uL (0.0-0.6); ABSOLUTE LYMPHOCYTES (AUTO) 2.5 10^3/uL (0.5-4.7); ABSOLUTE MONOCYTES (AUTO) 1.2 10^3/uL (0.1-1.4); ABSOLUTE NEUT (AUTO) 7.4 10^3/uL (1.7-8.2); EOSINOPHILS % (AUTO) 2.7 % (0-6); HEMATOCRIT 43.2 % (37.9-51.0); HEMOGLOBIN 15.1 g/dL (13.5-17.0); LYMPHOCYTES % (AUTO) 21.7 % (13-45); MEAN CORPUSCULAR HEMOGLOBIN 27.9 pg (27.0-33.4); MEAN CORPUSCULAR HGB CONC 34.9 g/dL (32.0-36.0); MEAN CORPUSCULAR VOLUME 80 fl (80-97); MONOCYTES % (AUTO) 10.3 % (3-13); PLATELET COUNT 226 10^3/uL (150-450); RED CELL DISTRIBUTION WIDTH 14.2 % (11.5-14.0); SEGMENTED NEUTROPHILS % (AUTO) 64.3 % (42-78); TOTAL CELLS COUNTED % (AUTO) 100 %; WHITE BLOOD COUNT 11.5 10^3/uL (4.0-10.5)
[2018-11-03 06:30] LABS: ANION GAP 7 (5-19); BLOOD UREA NITROGEN 37 mg/dL (7-20); CARBON DIOXIDE 33 mmol/L (22-30); CHLORIDE 99 mmol/L (98-107); GLUCOSE 86 mg/dL (75-110); POTASSIUM 3.3 mmol/L (3.6-5.0); SODIUM 139.3 mmol/L (137-145)
[2018-11-03] MEDS: ASPIRIN 81 MG TABLET, ENT COATED PO SCH ×2 (09:35→09:45)
[2018-11-03] MEDS: DOCUSATE SODIUM 100 MG CAPSULE PO SCH ×2 (09:44→18:41)
[2018-11-03] MEDS: CHLORTHALIDONE 25 MG TABLET PO SCH (09:44)
[2018-11-03] MEDS: FUROSEMIDE INJ/PF 40 MG/4 ML SDV IV SCH (09:44)
[2018-11-03] MEDS: FAMOTIDINE INJ/PF 20 MG/2 ML SDV IV SCH ×2 (09:44→21:28)
[2018-11-03] MEDS: TORSEMIDE 20 MG TABLET PO SCH (09:44)
[2018-11-03] MEDS: GLIMEPIRIDE 4 MG TABLET PO SCH (09:44)
[2018-11-03] MEDS: APIXABAN 5 MG TABLET PO SCH ×2 (09:45→18:40)
[2018-11-03] MEDS: SOTALOL HCL 80 MG TABLET PO SCH ×2 (09:45→21:28)
[2018-11-03] MEDS: METFORMIN HCL 500 MG TABLET PO SCH ×2 (09:45→18:40)
[2018-11-03] MEDS: INSULIN LISPRO 100 UNIT/ML 3 ML VIAL SUBCUT SCH ×3 (09:45→18:40)
[2018-11-03] MEDS: LISINOPRIL 10 MG TABLET PO SCH (09:45)
[2018-11-03] MEDS: CARVEDILOL 12.5 MG TABLET PO SCH ×2 (09:45→21:28)
[2018-11-03] MEDS: SPIRONOLACTONE 25 MG TABLET PO SCH (09:45)
[2018-11-03] MEDS: INSULIN GLARGINE,HUM.REC.ANLOG 300 UNIT/3 ML INSULN.PEN SUBCUT SCH (09:54)
[2018-11-03] MEDS ORDERED: POTASSIUM CHLORIDE 10 MEQ CAPSULE.ER PO ONE (10:30)
--- NOTE | 2018-11-03 13:57 | PDOC PROGRESS REPORT ---
Subjective Progress Note for:: 11/03/18 Subjective:: I seen patient resting on recliner. He is awake alert oriented he is not in pain or distress. He has mild hypokalemia with potassium of 3.3 and his creatinine is also creeping up from 1.03-1.68. I cut down his torsemide from 40 mg to 20 mg p.o. daily. Reason For Visit: ACUTE CONGESTIVE HEART FAILURE Physical Exam Vital Signs: Temp Pulse Resp BP Pulse Ox 98.0 F 74 16 142/71 H 98 11/03/18 12:02 11/03/18 12:02 11/03/18 12:02 11/03/18 12:02 11/03/18 12:02 Intake & Output 11/02/18 11/03/18 11/04/18 06:59 06:59 06:59 Intake Total 474 474 474 Output Total 1400 2975 1400 Balance -926 -2501 -926 Weight 138.4 kg 135.2 kg General appearance: PRESENT: no acute distress, well-developed, well-nourished Head exam: PRESENT: atraumatic, normocephalic Eye exam: PRESENT: conjunctiva pink, EOMI, PERRLA. ABSENT: scleral icterus Ear exam: PRESENT: normal external ear exam Mouth exam: PRESENT: moist, tongue midline Neck exam: ABSENT: carotid bruit, JVD, lymphadenopathy, thyromegaly Respiratory exam: PRESENT: clear to auscultation ananya. ABSENT: rales, rhonchi, wheezes Cardiovascular exam: PRESENT: irregular rhythm Pulses: PRESENT: normal dorsalis pedis pul Vascular exam: PRESENT: normal capillary refill GI/Abdominal exam: PRESENT: other - Morbidly obese abdomen Rectal exam: PRESENT: deferred Extremities exam: PRESENT: +2 edema Neurological exam: PRESENT: alert, awake, oriented to person, oriented to place, oriented to time, oriented to situation. ABSENT: motor sensory deficit Psychiatric exam: PRESENT: appropriate affect, normal mood. ABSENT: homicidal ideation, suicidal ideation Skin exam: PRESENT: dry, intact, warm. ABSENT: cyanosis, rash Results Laboratory Results: 11/03/18 05:40 11/03/18 05:40 11/03/18 11/03/18 05:40 05:40 WBC 11.5 H RBC 5.40 Hgb 15.1 Hct 43.2 MCV 80 MCH 27.9 MCHC 34.9 RDW 14.2 H Plt Count 226 Seg Neutrophils % 64.3 Lymphocytes % 21.7 Monocytes % 10.3 Eosinophils % 2.7 Basophils % 1.0 Absolute Neutrophils 7.4 Absolute Lymphocytes 2.5 Absolute Monocytes 1.2 Absolute Eosinophils 0.3 Absolute Basophils 0.1 Sodium 139.3 Potassium 3.3 L Chloride 99 Carbon Dioxide 33 H Anion Gap 7 BUN 37 H Creatinine 1.68 H Est GFR ( Amer) 51 L Est GFR (Non-Af Amer) 42 L Glucose 86 Calcium 9.0 Magnesium 1.8 10/31/18 10/31/18 10/31/18 03:11 03:11 09:44 Creatine Kinase 199 H CK-MB (CK-2) Troponin I 0.026 NT-Pro-B Natriuret Pep 2060 H 2180 H 10/31/18 10/31/18 10/31/18 09:44 15:45 15:45 Creatine Kinase 170 CK-MB (CK-2) 2.83 2.75 Troponin I 0.030 0.029 NT-Pro-B Natriuret Pep 10/31/18 10/31/18 11/02/18 21:19 21:19 05:15 Creatine Kinase 167 CK-MB (CK-2) 2.57 Troponin I 0.028 NT-Pro-B Natriuret Pep 1020 H Impressions: Chest X-Ray 10/31/18 03:11 IMPRESSION: No definite pneumonia. Assessment & Plan - Diagnosis (1) Acute kidney injury Is this a current diagnosis for this admission?: Yes Plan: His creatinine is trending up. May be due to aggressive diuresis. I decreased the dose of his torsemide from 40-20. (2) Acute diastolic (congestive) heart failure Is this a current diagnosis for this admission?: Yes Plan: Continue Lasix. (3) Hypertensive emergency Is this a current diagnosis for this admission?: Yes Plan: Which precipitated the acute congestive heart failure. Patient has been on Coreg, hydralazine and lisinopril. Today his blood pressure is 139/94. I increased the dose of his hydralazine to 50 mg 3 times daily. (4) Chronic atrial fibrillation Is this a current diagnosis for this admission?: Yes Plan: Rate controlled. I will continue his Eliquis. (5) Morbid obesity with BMI of 45.0-49.9, adult Is this a current diagnosis for this admission?: Yes Plan: Patient advised to do lifestyle modification in the form of healthy diet, regular exercise and weight loss.
[2018-11-03] MEDS: ATORVASTATIN CALCIUM 80 MG TABLET PO SCH (21:27)
[2018-11-03] MEDS: INSULIN LISPRO 100 UNIT/ML 3 ML VIAL SUBCUT PRN (21:29)
[2018-11-04] MEDS: HYDRALAZINE HCL 25 MG TABLET PO SCH (05:22)
[2018-11-04] MEDS: LEVOTHYROXINE SODIUM 0.1 MG TABLET PO SCH (05:23)
[2018-11-04 06:39] LABS: ANION GAP 7 (5-19); BLOOD UREA NITROGEN 43 mg/dL (7-20); CALCIUM 9.1 mg/dL (8.4-10.2); CARBON DIOXIDE 31 mmol/L (22-30); CHLORIDE 99 mmol/L (98-107); GLUCOSE 120 mg/dL (75-110); POTASSIUM 3.6 mmol/L (3.6-5.0); SODIUM 137.4 mmol/L (137-145)
[2018-11-04] MEDS: METFORMIN HCL 500 MG TABLET PO SCH (08:00)
[2018-11-04] MEDS: INSULIN LISPRO 100 UNIT/ML 3 ML VIAL SUBCUT SCH (08:02)
[2018-11-04] MEDS: ASPIRIN 81 MG TABLET, ENT COATED PO SCH ×2 (09:49→09:51)
[2018-11-04] MEDS: LISINOPRIL 10 MG TABLET PO SCH (09:49)
[2018-11-04] MEDS: FUROSEMIDE INJ/PF 40 MG/4 ML SDV IV SCH (09:49)
[2018-11-04] MEDS: DOCUSATE SODIUM 100 MG CAPSULE PO SCH (09:49)
[2018-11-04] MEDS: CARVEDILOL 12.5 MG TABLET PO SCH (09:49)
[2018-11-04] MEDS: FAMOTIDINE INJ/PF 20 MG/2 ML SDV IV SCH (09:49)
[2018-11-04] MEDS: APIXABAN 5 MG TABLET PO SCH (09:49)
[2018-11-04] MEDS: CHLORTHALIDONE 25 MG TABLET PO SCH (09:50)
[2018-11-04] MEDS: GLIMEPIRIDE 4 MG TABLET PO SCH (09:50)
[2018-11-04] MEDS: INSULIN GLARGINE,HUM.REC.ANLOG 300 UNIT/3 ML INSULN.PEN SUBCUT SCH (09:50)
[2018-11-04] MEDS: SOTALOL HCL 80 MG TABLET PO SCH (09:50)
[2018-11-04] MEDS ORDERED: TORSEMIDE 20 MG TABLET PO SCH (10:00)
--- NOTE | 2018-11-04 10:28 | PDOC DISCHARGE SUMMARY ---
General - Admit/Disc Date/PCP Admission Date/Primary Care Provider: 10/31/18 05:12 UNIQUE LAROSE, Discharge Date: 11/04/18 - Discharge Diagnosis (1) Acute kidney injury Is this a current diagnosis for this admission?: Yes (2) Acute diastolic (congestive) heart failure Is this a current diagnosis for this admission?: Yes (3) Hypertensive emergency Is this a current diagnosis for this admission?: Yes (4) Chronic atrial fibrillation Is this a current diagnosis for this admission?: Yes (5) Morbid obesity with BMI of 45.0-49.9, adult Is this a current diagnosis for this admission?: Yes - Additional Information Resuscitation Status: Full Code Discharge Diet: Cardiac, Diabetic Discharge Activity: Activity As Tolerated, Balance Activity w/Rest, Weigh Daily Home Medications: Apixaban [Eliquis 5 mg Tablet] 5 mg PO BID 10/31/18 Aspirin [Adult Low Dose Aspirin EC] 81 mg PO DAILY 10/31/18 Atorvastatin Calcium [Lipitor 80 mg Tablet] 80 mg PO QHS 10/31/18 Carvedilol [Coreg 6.25 mg Tablet] 6.25 mg PO Q12 10/31/18 Chlorthalidone [Chlorthalidone 50 mg Tablet] 50 mg PO DAILY 10/31/18 Dulaglutide [Trulicity] 1.5 mg SQ THOMAS 10/31/18 Glimepiride [Amaryl 4 mg Tablet] 8 mg PO DAILY 10/31/18 Insulin Aspart [Novolog Flexpen] 10 units SQ BIDBL 10/31/18 Insulin Aspart [Novolog Flexpen] 25 units SQ WSUPPER 10/31/18 Insulin Degludec [Tresiba Flextouch U-100] 96 units SQ QPM 10/31/18 Levothyroxine Sodium 100 mcg PO Q6AM 10/31/18 Metformin HCl [Glucophage XR 500 mg Tablet] 2,000 mg PO DAILY 10/31/18 Sotalol HCl [Betapace 80 mg Tablet] 80 mg PO BID 10/31/18 History of Present Illness History of Present Illness: MARILEE MONTANO is a 63 year old male who presented to the emergency room with a 3- day history of gradually worsening dyspnea. Over the course of 3 days he noted increased dyspnea with swelling of his legs and a cough which was occasionally productive of small amounts of green mucus. On the late evening of he became severely dyspneic at home and summoned EMS to bring him to the hospital. He denied similar prior episodes and has not identified any aggravating or ameliorating factors for his dyspnea and swelling. In the emergency room he was found to have severe hypertension as well as acute pulmonary edema with 4+ peripheral edema and thus was treated with a nitroglycerin drip and supplemental oxygen via BiPAP which relieved his sympt oms. He was also treated with diuretic therapy utilizing Lasix and was started on empiric antibiotic of Levaquin due to an elevated white blood count with his history of a cough productive of greenish mucus and mildly elevated serum lactate at 2.6. He additionally has a history of atrial fibrillation and is on chronic anticoagulation with Eliquis. Because of his new onset congestive heart failure he is admitted to the hospital for further evaluation and treatment. Hospital Course Hospital Course: This is 63 years old male patient presented with past medical history of morbid obesity, atrial fibrillation and chronic anticoagulation with Eliquis, and hypertension presented with chief complaint of 3 days history of shortness of breath which is gradually worsening. At presentation to ER his blood pressure was in the hypertensive emergency range for which she was started on nitroglycerin drip. Patient is found to be in acute diastolic congestive heart failure evidenced by bilateral pitting edema shortness of breath and echocardiogram revealed ejection fraction of 60% so patient has heart failure with preserved left ventricular function. Currently his shortness of breath and bilateral edema has subsided. His BMP mildly elevated creatinine which is due to aggressive diuresis. Continue his torsemide and send him home with low-dose 20 mg of Lasix p.o. daily. He will have follow-up with Dr. Mckeon in 1 week. Physical Exam Vital Signs: Temp Pulse Resp BP Pulse Ox 98.6 F 64 16 146/72 H 97 11/04/18 07:33 11/04/18 07:33 11/04/18 07:33 11/04/18 07:33 11/04/18 07:33 Intake & Output 11/03/18 11/04/18 11/05/18 06:59 06:59 06:59 Intake Total 474 674 Output Total 2199 5193 Balance -3282 -8811 Weight 135.2 kg 134.5 kg General appearance: PRESENT: no acute distress Head exam: PRESENT: atraumatic Eye exam: PRESENT: conjunctiva pink Mouth exam: PRESENT: moist Neck exam: ABSENT: carotid bruit, JVD, lymphadenopathy, thyromegaly Respiratory exam: PRESENT: clear to auscultation ananya. ABSENT: rales, rhonchi, wheezes Cardiovascular exam: PRESENT: RRR. ABSENT: diastolic murmur, rubs, systolic murmur GI/Abdominal exam: PRESENT: normal bowel sounds, soft. ABSENT: distended, guarding, mass, organolmegaly, rebound, tenderness Neurological exam: PRESENT: alert, awake Results Laboratory Results: 11/03/18 05:40 11/04/18 05:36 11/04/18 05:36 Sodium 137.4 Potassium 3.6 Chloride 99 Carbon Dioxide 31 H Anion Gap 7 BUN 43 H Creatinine 1.73 H Est GFR ( Amer) 49 L Est GFR (Non-Af Amer) 40 L Glucose 120 H Calcium 9.1 10/31/18 10/31/18 10/31/18 03:11 03:11 09:44 Creatine Kinase 199 H CK-MB (CK-2) Troponin I 0.026 NT-Pro-B Natriuret Pep 2060 H 2180 H 10/31/18 10/31/18 10/31/18 09:44 15:45 15:45 Creatine Kinase 170 CK-MB (CK-2) 2.83 2.75 Troponin I 0.030 0.029 NT-Pro-B Natriuret Pep 10/31/18 10/31/18 11/02/18 21:19 21:19 05:15 Creatine Kinase 167 CK-MB (CK-2) 2.57 Troponin I 0.028 NT-Pro-B Natriuret Pep 1020 H Impressions: Chest X-Ray 10/31/18 03:11 IMPRESSION: No definite pneumonia. Qualifiers - * PATIENT BEING DISCHARGED WITH ANY OF THE FOLLOWING DIAGNOSIS: Heart Failure VTE patient discharged on overlapping Therapy?: No Reason(s) for not prescribing Overlap Therapy:: Not indicated Stroke Pt being discharged on Anti-thrombolytic therapy?: No Reason(s) for not prescribing Anti-thrombolytic therapy:: Not indicated Stroke Pt being discharged on Anti-coagulation therapy?: No Reason(s) for not prescribing Anti-coagulation therapy:: Not indicated Stroke Pt being discharged on Statins?: No Reason(s) for not prescribing Statins therapy:: Not indicated W[place] Pt being discharged on Aspirin therapy?: No Reason(s) for not prescribing Aspirin therapy:: Not indicated W[place] Pt being discharged on Statins?: No Reason(s) for not prescribing Statin therapy:: Not indicated [place] Pt discharged ACEI/ARBS?: No Reason(s) for not prescribing ACEI/ARBS:: Not indicated HF Pt being discharged on ACEI for LVEF less than 40%?: No Reason(s) for not prescribing ACEI:: Not indicated HF Pt being discharged on ARBS for LVEF less than 40%?: No Reason(s) for not prescribing ARBS:: Not indicated HF Pt with Afib discharged with Warfarin?: No Reason(s) for not prescribing Warfarin:: Not indicated HF Pt discharged on evidence-based Beta Jamie:: No Reason(s) for not prescribing evidence-based Beta Jamie:: Not indicated
[2018-11-04 11:48] VITALS: BP 166/92
[2018-11-05] MEDS ORDERED: (PENDING PHARMACY ID) (Dulaglutide [Trulicity] 1.5 MG) SQ SCH (12:09)
== END 2018-11-04 12:06 | disposition home or self-care (01) | DRG 292 ==
LOC: ER 02:58 → EH 05:12 → 3S 06:28
PROVIDERS: ADMIT Emergency Medicine; ATTEND Emergency Medicine
DX: I11.0 Hypertensive heart disease with heart failure (principal); I16.1 Hypertensive emergency; N17.9 Acute kidney failure, unspecified; Z68.41 Body mass index [BMI] 40.0-44.9, adult; I50.33 Acute on chronic diastolic (congestive) heart failure; I48.2 Chronic atrial fibrillation; E66.01 Morbid (severe) obesity due to excess calories; Z79.01 Long term (current) use of anticoagulants; Z79.84 Long term (current) use of oral hypoglycemic drugs; Z79.82 Long term (current) use of aspirin; Z79.4 Long term (current) use of insulin; Z79.899 Other long term (current) drug therapy
CPT/HCPCS: 36415; 71045; 80048; 80053; 80061; 81001; 82550; 82553; 82803; 82962; 83036; 83605; 83735; 83880; 84439; 84443; 84481; 84484; 85025; 87040; 87804; 93005; 93010; 93306; 94660; 96365; 96366; 96375; 99291; J0360; J1815; J1940; J1956; J3490; S0028

== ENCOUNTER 2019-02-10 07:51 | Emergency (ER) | payer BC ==
[2019-02-10] MEDS ORDERED: IPRATROPIUM/ALBUTEROL 0.5-2.5 MG/3 ML AMPUL NEB ONE (08:05)
[2019-02-10] MEDS ORDERED: PREDNISONE 20 MG TABLET PO ONE (08:05)
[2019-02-10] MEDS: ALBUTEROL SULFATE 0.083% NEB 2.5 MG/3 ML AMPUL NEB SCH (08:26)
--- NOTE | 2019-02-10 08:58 | RADIOLOGY REPORT (SQ) ---
EXAM DESCRIPTION: CHEST SINGLE VIEW COMPLETED DATE/TIME: 02/10/2019 8:46 am REASON FOR STUDY: sob COMPARISON: 10/31/2018. FINDINGS: Single-view chest AP portable upright. Stable cardiomediastinal silhouette. Minimal central vascular congestion. Lungs otherwise relativel y clear. No pneumothorax. TECHNICAL DOCUMENTATION: JOB ID: [id number] Reading location - IP/workstation name: [facility]
[2019-02-10 09:00] LABS: ABSOLUTE LYMPHOCYTES (AUTO) 0.9 10^3/uL (0.5-4.7); ABSOLUTE MONOCYTES (AUTO) 0.9 10^3/uL (0.1-1.4); ABSOLUTE NEUT (AUTO) 5.8 10^3/uL (1.7-8.2); BASOPHILS % (AUTO) 0.4 % (0-2); HEMATOCRIT 42.4 % (37.9-51.0); HEMOGLOBIN 14.8 g/dL (13.5-17.0); MEAN CORPUSCULAR HEMOGLOBIN 27.7 pg (27.0-33.4); MEAN CORPUSCULAR HGB CONC 34.9 g/dL (32.0-36.0); MEAN CORPUSCULAR VOLUME 79 fl (80-97); MONOCYTES % (AUTO) 11.7 % (3-13); PLATELET COUNT 194 10^3/uL (150-450); RED BLOOD COUNT 5.34 10^6/uL (4.35-5.55); RED CELL DISTRIBUTION WIDTH 15.3 % (11.5-14.0); SEGMENTED NEUTROPHILS % (AUTO) 75.9 % (42-78); TOTAL CELLS COUNTED % (AUTO) 100 %; WHITE BLOOD COUNT 7.6 10^3/uL (4.0-10.5)
--- NOTE | 2019-02-10 09:03 | ER Document Report ---
ED General - General Chief Complaint: Shortness Of Breath Stated Complaint: SHORTNESS OF BREATH Time Seen by Provider: 02/10/19 08:58 TRAVEL OUTSIDE OF THE [place] IN LAST 30 DAYS: No - HPI Notes: Patient is a 63-year-old male that presents to the emergency department for chief complaint of shortness of breath and fatigue. Patient states he woke up this morning with increased shortness of breath. He states he has had increasing shortness of breath over the last week and saw his PCP 3 days ago. They started him on albuterol which he has been using 3-4 times a day. He states the albuterol seems to be helping. He reports increased sputum production today. He states he has had intermittent low-grade fevers that run around 100. Patient states this morning he was attempting to take off his CPAP machine and he felt like he could not move his arms or legs. He states that he felt very heavy. He denied any numbness or unilateral symptoms. He states both of his arms and legs felt equally weak. He did have assistance getting up from family and was able to ambulate to the bathroom. Family states that he seemed unsteady on his feet. When EMS arrived patient had a pulse ox of 89% on room air and increased work of breathing. He did receive 1 albuterol by EMS prior to arrival and states that did improve his symptoms. He denies any associated chest pain, headache, lightheadedness, syncope, and numbness. Patient does state he feels more swollen and denies being on current Lasix or history of heart failure. Past Medical History: Diabetes, COPD, A. fib, hypertension, hyperlipidemia Past Surgical History: Reviewed in chart Social History: Denies tobacco and alcohol use Family History: Reviewed and noncontributory for presenting illness Allergies: Reviewed, see documented allergy list. REVIEW OF SYSTEMS: CONSTITUTIONAL : No fever No chills No diaphoresis No recent illness EENT: No vision changes No congestion No sore throat CARDIOVASCULAR: No chest pain No palpitations RESPIRATORY: shortness of breath cough difficulty breathing GASTROINTESTINAL: No abdominal pain No nausea No vomiting No diarrhea GENITOURINARY: No dysuria No hematuria No difficulty urinating MUSCULOSKELETAL: No back pain No leg pain No arm pain SKIN: No rashes No lesions LYMPHATIC: No swollen, enlarged glands. NEUROLOGICAL: No lightheadedness No headache weakness No paresthesias PSYCHIATRIC: No anxiety No depression PHYSICAL EXAMINATION: Vital signs reviewed, nursing noted reviewed. GENERAL: Well-appearing, obese and in no acute distress. HEAD: Atraumatic, normocephalic. EYES: Eyes appear normal, extraocular movements intact, sclera anicteric, conjunctiva are normal. ENT: nares patent, oropharynx clear without exudates. Moist mucous membranes. NECK: Normal range of motion, supple without lymphadenopathy LUNGS: Mild tachypnea, no accessory muscle use, bilateral expiratory wheezing with diminished sounds, symmetric. Speaking in full sentences HEART: Regular rate and rhythm without murmurs ABDOMEN: Protuberant, soft, nontender, normoactive bowel sounds. No rebound, guarding, or rigidity. No masses appreciated. EXTREMITIES: Nontender, good range of motion, +2 pitting edema bilateral lower extremity, symmetric. NEUROLOGICAL: NIH=0, No focal neurological deficits. Moves all extremities spontaneously Motor and sensory grossly intact on exam. PSYCH: Normal mood, normal affect. SKIN: Warm, Dry, normal turgor, no rashes or lesions noted on exposed skin - Related Data Allergies/Adverse Reactions: Penicillins Allergy (Verified 10/31/18 03:47) Past Medical History - Social History Smoking Status: Never Smoker Family History: Reviewed & Not Pertinent Patient has suicidal ideation: No Patient has homicidal ideation: No - Past Medical History Cardiac Medical History: Reports: Hx Atrial Fibrillation, Hx Heart Attack - 16 YRS AGO, Hx Hypercholesterolemia - FOR 15 YRS, Hx Hypertension Pulmonary Medical History: Reports: Hx Bronchitis - 3 YRS AGO Denies: Hx Asthma, Hx COPD Neurological Medical History: Denies: Hx Migraine, Hx Seizures Endocrine Medical History: Denies: Hx Diabetes Mellitus Type 1, Hx Diabetes Mellitus Type 2, Hx Hyperthyroidism, Hx Hypothyroidism Renal/ Medical History: Denies: Hx Peritoneal Dialysis GI Medical History: Reports: Hx Hiatal Hernia - HAD FOR 15 YRS. Denies: Hx Cirrhosis, Hx Hepatitis Musculoskeletal Medical History: Denies Hx Arthritis, Denies Hx Gout Skin Medical History: Denies Hx Eczema, Denies Hx Psoriasis Psychiatric Medical History: Denies: Hx Depression Infectious Medical History: Denies: Hx Hepatitis Past Surgical History: Reports: Hx Abdominal Surgery - HERNIA ABOUT 15 YRS AGO, Hx Cardiac Catheterization - 15 YRS AGO. Denies: Hx Adenoidectomy - Immunizations Immunizations up to date: Yes Hx Diphtheria, Pertussis, Tetanus Vaccination: Yes Hx Pneumococcal Vaccination: 10/31/17 Physical Exam - Vital signs Vitals: Resp Pulse Ox 20 91 L 02/10/19 07:55 02/10/19 07:55 Course - Re-evaluation Re-evalutation: 02/10/19 09:02 Vitals reviewed. Nursing notes reviewed. Patient had received a total of 3 albuterol's and one DuoNeb prior to my evaluation of him. He states he is feeling much better. He does have expiratory wheezing but is in no acute respiratory distress. He is oxygenating at 95-97% on room air. Patient has complained of weakness this morning. His symptoms were bilateral and he currently has no focal neurologic deficits. I suspect his generalized weakness was from his hypoxic state. With the symptoms being bilateral acute ischemic stroke is not currently suspected. 02/10/19 11:00 Patient's lab work shows baseline renal insufficiency. He also has baseline troponin. Patient was ambulated on room air around the department and maintain his oxygen saturation at 96 and 97%. He did have increased work of breathing after ambulation but was still able to speak in full sentences and reported feeling much better than when he presented to the ER. Patient does have congestive heart failure and takes Lasix 40 mg daily. He will be given a dose of 40 mg IV Lasix and was told to continue taking his Lasix at home as directed. He will follow with his primary care doctor first thing Tuesday morning for reevaluation of his respiratory status. He will return to the emergency room if he has any increased work of breathing or shortness of breath. I did also advise that he get a portable home pulse ox. Patient told to return to the ER if his O2 is less than 90% or for worsening symptoms. He is in agreement with this plan of care and stable at discharge. Laboratory 02/10/19 02/10/19 02/10/19 08:04 08:04 08:04 WBC 7.6 RBC 5.34 Hgb 14.8 Hct 42.4 MCV 79 L MCH 27.7 MCHC 34.9 RDW 15.3 H Plt Count 194 Seg Neutrophils % 75.9 Lymphocytes % 12.0 L Monocytes % 11.7 Eosinophils % 0.0 Basophils % 0.4 Absolute Neutrophils 5.8 Absolute Lymphocytes 0.9 Absolute Monocytes 0.9 Absolute Eosinophils 0.0 Absolute Basophils 0.0 Sodium 132.1 L Potassium 4.2 Chloride 96 L Carbon Dioxide 28 Anion Gap 8 BUN 28 H Creatinine 1.42 H Est GFR ( Amer) > 60 Est GFR (Non-Af Amer) 51 L Glucose 84 POC Glucose Calcium 8.5 Total Bilirubin 0.8 Direct Bilirubin 0.4 Neonat Total Bilirubin Not Reportable Neonat Direct Bilirubin Not Reportable Neonat Indirect Bili Not Reportable AST 56 ALT 46 Alkaline Phosphatase 94 Troponin I 0.029 Total Protein 6.5 Albumin 3.5 02/10/19 09:37 WBC RBC Hgb Hct MCV MCH MCHC RDW Plt Count Seg Neutrophils % Lymphocytes % Monocytes % Eosinophils % Basophils % Absolute Neutrophils Absolute Lymphocytes Absolute Monocytes Absolute Eosinophils Absolute Basophils Sodium Potassium Chloride Carbon Dioxide Anion Gap BUN Creatinine Est GFR ( Amer) Est GFR (Non-Af Amer) Glucose POC Glucose 68 L Calcium Total Bilirubin Direct Bilirubin Neonat Total Bilirubin Neonat Direct Bilirubin Neonat Indirect Bili AST ALT Alkaline Phosphatase Troponin I Total Protein Albumin - Vital Signs Vital signs: Temp Pulse Resp BP Pulse Ox 98.4 F 88 16 151/96 H 91 L 02/10/19 09:02 02/10/19 08:06 02/10/19 10:40 02/10/19 10:01 02/10/19 10:40 - Laboratory Result Diagrams: 02/10/19 08:04 02/10/19 08:04 Laboratory results interpreted by me: 02/10/19 02/10/19 02/10/19 08:04 08:04 09:37 MCV 79 L RDW 15.3 H Lymphocytes % 12.0 L Sodium 132.1 L Chloride 96 L BUN 28 H Creatinine 1.42 H Est GFR (Non-Af Amer) 51 L POC Glucose 68 L Discharge - Discharge Clinical Impression: Generalized weakness CHF exacerbation Qualifiers: Heart failure type: unspecified Qualified Code(s): I50.9 - Heart failure, un specified Condition: Stable Disposition: HOME, SELF-CARE Instructions: Congestive Heart Failure ([facility]) Additional Instructions: Please return to the emergency department if you have any worsening, or concern of your symptoms. Please return to the emergency department if you develop chest pain, difficulty breathing, severe abdominal pain, or ongoing vomiting. Please follow-up with your primary care physician in 2-3 days and any other recommended physicians. If prescribed, take all medications as directed. If you have any questions or concerns do not hesitate to return the emergency department for evaluation. Obtain a home pulse oximetry to monitor your O2 levels. Return to the ER if your pulse ox drops below 90% at any point in time. Use your albuterol inhaler 2 puffs every 4 hours as needed for shortness of breath Continue using her home CPAP machine as prescribed
[2019-02-10 09:15] LABS: ALANINE AMINOTRANSFERASE 46 U/L (21-72); ALBUMIN 3.5 g/dL (3.5-5.0); ALKALINE PHOSPHATASE 94 U/L (38-126); ANION GAP 8 (5-19); ASPARTATE AMINO TRANSFERASE 56 U/L (17-59); BILIRUBIN,DIRECT 0.4 mg/dL (0.0-0.4); BILIRUBIN,TOTAL 0.8 mg/dL (0.2-1.3); BLOOD UREA NITROGEN 28 mg/dL (7-20); CALCIUM 8.5 mg/dL (8.4-10.2); CARBON DIOXIDE 28 mmol/L (22-30); CHLORIDE 96 mmol/L (98-107); GLUCOSE 84 mg/dL (75-110); POTASSIUM 4.2 mmol/L (3.6-5.0); SODIUM 132.1 mmol/L (137-145); TOTAL PROTEIN 6.5 g/dL (6.3-8.2)
[2019-02-10] MEDS ORDERED: FUROSEMIDE INJ/PF 40 MG/4 ML SDV IV ONE (11:00)
[2019-02-10 11:40] VITALS: BP 161/83
--- NOTE | 2019-02-10 13:11 | EKG REPORT ---
SEVERITY:- ABNORMAL ECG - ATRIAL FIBRILLATION, V-RATE 57-88 BORDERLINE PROLONGED QT INTERVAL : Confirmed by: Gustavo Arora 10-Feb-2019 13:10:51
== END 2019-02-10 11:40 | disposition home or self-care (01) ==
LOC: ER 07:51
DX: I11.0 Hypertensive heart disease with heart failure (principal); I50.9 Heart failure, unspecified; J44.9 Chronic obstructive pulmonary disease, unspecified; E11.9 Type 2 diabetes mellitus without complications; R06.02 Shortness of breath; N28.9 Disorder of kidney and ureter, unspecified; R53.83 Other fatigue; R05 Cough; E66.9 Obesity, unspecified; Z88.0 Allergy status to penicillin
CPT/HCPCS: 93005; 94640 ×2; 99285; 96374; 36415; 82962; 85025; 80053; 84484; 71045; 93010; J1940; J7620